=== PATIENT | male | born 1990 | race Caucasian/White ===

== ENCOUNTER 2024-07-21 08:36 | Emergency (ER) | payer MEDICAID ==
[~2024-07-21] VITALS: Ht 172.7 cm; Wt 85.0 kg
[2024-07-21 08:41] VITALS: O2SAT 99
[2024-07-21] MEDS: KETOROLAC 30MG/ML VIAL IM ONE (09:52)
[2024-07-21] MEDS: ACETAMINOPHEN 325MG TABLET PO ONE (09:53)
[2024-07-21] MEDS: TETANUS, DIPHTHERIA, PERTUSSIS VAC/PF 0.5ML (>10YR OLD) IM ONE (09:54)
[2024-07-21] MEDS ORDERED: METH-653 MT (11:47)
[2024-07-21] MEDS ORDERED: IBUP-2029 MT (11:47)
[2024-07-21] MEDS: LIDOCAINE HCL/PF 1% 10 MG/ML 5ML VIAL INFIL ONE (13:30)
[2024-07-21 13:32] VITALS: BP 134/77; PULSE 76; RESP 18; TEMP 36.61404; O2SAT 99
[2024-07-21] MEDS: BACITRACIN ZINC OINT UDPKT TOP ONE (13:32)
== END 2024-07-21 14:16 | disposition home or self-care (01) ==
LOC: EDBD 09:08 → ER 09:08
DX: S02.2XXA Fracture of nasal bones, initial encounter for closed fracture (principal); S83.92XA Sprain of unspecified site of left knee, initial encounter; X58.XXXA Exposure to other specified factors, initial encounter; Y93.89 Activity, other specified; Y92.89 Other specified places as the place of occurrence of the external cause; Y99.8 Other external cause status
CPT/HCPCS: 73562; 73610; 70450; 70486; 72125; 12011; 96372; 99285; J1885; Z7610 ×2